=== PATIENT | female | born 1990 | race Caucasian/White ===

== ENCOUNTER → 2016-07-26 | Outpatient (CLI) | payer BC ==
[~2016-07-26] MED LIST: ALBU8.5H INH; IBUP200C62 PO; MECL-103 PO; NORE-108 PO
--- NOTE | 2016-07-26 13:38 | DI ---
Indication: ITS.REASON: R31.9 HEMATURIA PROCEDURE: CT RENAL W/O CONTRAST: Encounter: Initial Comparison: None Technique: Axial CT images were performed through the abdomen and pelvis without intravenous contrast. Coronal and sagittal two-dimensional reformats. Automated Exposure Control and Iterative Reconstruction dose reducing techniques were utilized. Findings: The lung bases are clear. The unenhanced contours of the liver are unremarkable. The gallbladder is surgically absent. The spleen, pancreas and adrenal glands are within normal limits. The kidneys are normal. No renal or definite ureteral stone disease. Ureters are somewhat difficult to follow in their entirety. Bladder is normal. Uterus and ovaries are within normal limits. No free fluid. Unopacified small and large bowel is grossly normal. The appendix is normal. Bone windows are within normal limits. Impression: Negative exam. No clear etiology for the patient's hematuria. .
== END ==
LOC: IMA 13:05
PROVIDERS: ATTEND Family Medicine
DX: R31.9 Hematuria, unspecified (principal)